=== PATIENT | male | born 2000 | race Caucasian/White ===

== ENCOUNTER 2019-11-06 23:33 | Observation (INO) ==
[2019-11-07] MEDS ORDERED: hydrOXYzine pamoate 25 MG CAPSULE PO PRN (02:06)
[2019-11-07] MEDS ORDERED: haloperidoL 5 MG TABLET PO PRN (02:06)
[2019-11-07] MEDS ORDERED: Acetaminophen 325 MG TABLET PO PRN (02:06)
[2019-11-07] MEDS ORDERED: *HR* LORazepam 1 MG TABLET PO PRN (02:06)
[2019-11-07] MEDS ORDERED: Haloperidol Lactate 5 MG/ML VIAL IM PRN (02:06)
[2019-11-07] MEDS ORDERED: Ibuprofen 400 MG TABLET PO PRN (02:06)
[2019-11-07] MEDS ORDERED: *HR* LORazepam 2 MG/ML VIAL IM PRN (02:06)
[2019-11-07] MEDS ORDERED: QUEtiapine Fumarate 25 MG TABLET PO PRN (02:21)
[2019-11-07] MEDS ORDERED: MOM Conc 10 ML UD.LIQ PO PRN (02:21)
[2019-11-07] MEDS ORDERED: Mag Hydrox/Al Hydrox/Simeth 30 ML UDC PO PRN (02:21)
[2019-11-07] MEDS: Nicotine 21 MG PATCH.TD24 TD SCH (10:10)
[2019-11-08] MEDS: Nicotine 21 MG PATCH.TD24 TD SCH (08:59)
[2019-11-08 09:00] VITALS: BP 125/77
== END 2019-11-08 11:25 | disposition home or self-care (01) ==
LOC: EMEROOARM 23:33 → 1ANU 11-07 02:04 → INTOOBSV 11-07 02:04 → 1ANU 11-07 02:20
PROVIDERS: ADMIT Psychiatry & Neurology Psychiatry; ATTEND Psychiatry & Neurology Psychiatry